=== PATIENT | female | born 1975 | race Two or more races ===

== ENCOUNTER 2016-12-08 17:04 | Emergency (ER) | payer OTHER ==
[~2016-12-08] VITALS: Ht 170.2 cm; Wt 54.4 kg
[~2016-12-08 17:04] MED LIST: LORA0.5T PO
[2016-12-08 17:09] VITALS: BP 122/71
[2016-12-08] MEDS ORDERED: ACETAMINOPHEN ES 500 MG TABLET ONE (17:49)
[2016-12-08] MEDS ORDERED: ACETAMINOPHEN ES 500 MG TABLET PO ONE (18:00)
== END 2016-12-08 18:05 | disposition home or self-care (01) ==
LOC: ER 17:06
DX: S61.211A Laceration without foreign body of left index finger without damage to nail, initial encounter (principal); W26.0XXA Contact with knife, initial encounter; Y93.89 Activity, other specified; Y92.89 Other specified places as the place of occurrence of the external cause; Y99.8 Other external cause status
CPT/HCPCS: A4606; Z7610

== ENCOUNTER 2022-02-14 00:07 | Emergency (ER) | payer OTHER ==
[~2022-02-14] VITALS: Ht 170.2 cm; Wt 63.5 kg
[2022-02-14 00:28] VITALS: BP 123/83
--- NOTE | 2022-02-14 00:51 | NUR ---
Patient discharged to home in stable condition. Written and verbal after care instructions given. Patient verbalizes understanding of instruction.
== END 2022-02-14 00:54 | disposition home or self-care (01) ==
LOC: ER 00:08
DX: S81.812A Laceration without foreign body, left lower leg, initial encounter (principal); Z79.52 Long term (current) use of systemic steroids; W01.0XXA Fall on same level from slipping, tripping and stumbling without subsequent striking against object, initial encounter; Y93.89 Activity, other specified; Y92.89 Other specified places as the place of occurrence of the external cause; Y99.8 Other external cause status